=== PATIENT | female | born 1950 | race Caucasian/White ===

== ENCOUNTER 2020-09-23 15:29 | Emergency (ER) | payer OTHER, BC ==
[~2020-09-23] VITALS: Ht 167.6 cm; Wt 74.8 kg
[2020-09-23] MEDS ORDERED: LAMOTRIGINE150 MG PO (17:42)
[2020-09-23 19:25] LABS: ABSOLUTE NEUTROPHILS 2.1 thou/uL (1.4-8.2); BASOPHILS 0.4 % (0.0-2.0); EOSINOPHILS 0.1 % (0.0-3.0); HEMATOCRIT 45.6 % (37.0-47.0); HEMOGLOBIN 15.4 gm/dL (12.0-15.0); LYMPHOCYTES 33.7 % (24.0-44.0); MCH 29.3 pg (26.0-34.0); MCHC 33.8 g/dL (28.0-37.0); MCV 86.8 fL (80.0-100.0); MONOCYTES 8.3 % (1.0-8.0); PLATELET COUNT 223 thou/uL (150-400); POLYS 57.5 % (36.0-66.0); RBC 5.26 mil/uL (4.20-5.00); RDW 13.4 % (10.5-14.5); WBC 3.7 thou/uL (4.0-11.0)
[2020-09-23 19:32] LABS: ANION GAP 7 mmol/L (7-16); BUN 8 mg/dL (7-18); CALCIUM 10.5 mg/dL (8.5-10.1); CHLORIDE 101 mmol/L (98-107); CO2 30 mmol/L (21-32); CREATININE 0.8 mg/dL (0.6-1.0); GLUCOSE 93 mg/dL (74-106); POTASSIUM 3.7 mmol/L (3.5-5.1); SODIUM 138 mmol/L (136-145)
[2020-09-23 19:41] LABS: TROPONIN-I <0.06 ng/mL (<0.06)
[2020-09-23 20:20] VITALS: BP 149/73
--- NOTE | 2020-09-24 07:19 | EKG ---
[facility] [place] [address] ELECTROCARDIOGRAM REPORT Name: ROSCOE GRACIA Room #: [facility]#: [id number] Admission: 09/23/20 Attend Phys: Discharge: 09/23/20 Date of : 46 Report #: [id number] [facility] ED Test Date: 2020-09-23 Test Time: 15:37:49 Pat Name: ROSCOE GRACIA Department: Room: Gender: F Order Processor: shanell : 1950 Requested By: Layla Dan Order Number: [id number] MD: Demian Block Measurements Intervals [place] Rate: 69 P: 50 SD: 178 QRS: -36 QRSD: 93 T: 21 QT: 384 QTc: 412 Interpretive Statements Sinus rhythm Low voltage, precordial leads Probable left ventricular hypertrophy Anterior Q waves, possibly due to LVH Baseline wander in lead(s) V3 No previous ECG available for comparison Electronically Signed On 09-24-2020 7:19:07 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
== END 2020-09-23 20:20 | disposition home or self-care (01) ==
LOC: ER 15:29
PROVIDERS: Nurse Practitioner
DX: M25.512 Pain in left shoulder (principal); G40.909 Epilepsy, unspecified, not intractable, without status epilepticus; Z79.899 Other long term (current) drug therapy; Z88.0 Allergy status to penicillin